=== PATIENT | female | born 1985 | race Caucasian/White ===

== ENCOUNTER 2019-10-28 17:01 | Emergency (ER) | payer BC, SELFPAY ==
[2019-10-28 17:32] VITALS: BP 116/75; PULSE 60; RESP 18; TEMP 36.9; O2SAT 99
--- NOTE | 2019-10-28 18:16 | ED.SKABFB ---
HPI - Skin/Abscess/Foreign Bdy General Chief complaint: Skin/Abscess/Foreign Body Stated complaint: rash Time Seen by Provider: 10/28/19 18:16 Source: patient and RN notes reviewed Mode of arrival: ambulatory Limitations: no limitations History of Present Illness HPI narrative: 34-year-old female presents with concern for rash to upper back, anterior chest, under her bra and around her breasts. Reports symptoms have been present for 2 weeks. She reports the rash itches sometimes and herman sometimes. Denies any new household products, personal care products, denies any history of food allergies, denies any new medications. Denies shortness of breath, problem swelling, problems breathing, swollen tongue, swollen lips. Reports Benadryl has no effect. MD complaint: rash Related Data Allergies Allergy/AdvReac Type Severity Reaction Status Date / Time No Known Allergies Allergy Verified 10/28/19 17:57 Review of Systems Review of Systems: Narrative: CONSTITUTIONAL: Denies malaise, chills, sweats, or fever. ENT: Denies rhinorrhea, congestion, sinus pain, otalgia or sore throat. CARDIOVASCULAR: Denies chest pain, palpitations, or edema. RESPIRATORY: Denies cough or dyspnea. GASTROINTESTINAL: Denies abdominal pain, nausea, vomiting, diarrhea SKIN: Reports 2-week history of itchy burning rash on her back, chest, under breasts, the armpits. MUSCULOSKELETAL: Denies myalgia. All systems reviewed & are unremarkable except as noted in HPI and below PMFSH Social History Social History Gender identity (if verbalized by the patient): Female Comments At time of signature, agree with nursing past medical, surgical, social and family history. There is no relevant family history pertinent to the presenting complaint Exam Narrative: Exam Narrative: GENERAL: Well-appearing, well-nourished, and in no acute distress. HEAD: Normocephalic EYES: PERRLA, conjunctivae clear ENT: Nares clear. Mucous membranes moist. Oropharynx without edema, erythema or lesions. NECK: Supple. No lymphadenopathy. CHEST: No respiratory distress. Clear to auscultation. No bony deformities, no asymmetry. Speaks in full sentences. HEART: Regular rate and rhythm. No murmur heard. SKIN: Warm, dry. [place] scaly patches, some annular noted to back, under bra line, rib cage, near axilla consistent with tinea NEURO: Alert and oriented x3. PSYCH: Normal mood and affect Course Course Emergency Course: Patient is aware of diagnosis, understands and agrees to treatment plan. Anticipatory guidance given. Patient agrees to follow-up as directed and is aware of reasons to seek care at the emergency department. Portions of this record may have been created with voice recognition software Vital Signs Vital signs: Vital Signs Temperature 98.4 F 10/28/19 17:32 Pulse Rate 60 10/28/19 17:32 Respiratory Rate 18 10/28/19 17:32 Blood Pressure 116/75 10/28/19 17:32 Pulse Oximetry 99 10/28/19 17:32 Temperature 98.4 F 10/28/19 17:32 Pulse Rate 60 10/28/19 17:32 Respiratory Rate 18 10/28/19 17:32 Blood Pressure 116/75 10/28/19 17:32 Pulse Oximetry 99 10/28/19 17:32 Reviewed. MDM - Skin/Abscess/Foreign Bdy MDM Narrative Medical decision making narrative: Does not appear at this time to be erythema multiforme, bullous, SJS, TEN; no evidence at this time to suggest RMSF, endocarditis or Lyme disease; patient looks well, nontoxic and is tolerating oral intake; no neurologic signs or symptoms; no headache, photophobia or neck pain; afebrile; appropriate for initial outpatient treatment; discussed the importance of follow-up, patient agrees; question, viral exanthema, contact dermatitis, allergic dermatitis, eczema, urticaria, tinea. No soft palate or uvula edema, no tongue, lip edema or other mucosal involvement, no respiratory compromise, no stridor, no wheezing, no wheezing, no history of syncope, no hypotension, no nausea, vomiting, or diarrhea. In
== END 2019-10-28 18:31 | disposition home or self-care (01) ==
PROVIDERS: Emergency Provider Nurse Practitioner; PCP Nurse Practitioner Family
DX: B35.9 Dermatophytosis, unspecified (principal)
CPT/HCPCS: 99213; G0463

== ENCOUNTER 2019-11-24 19:00 | Emergency (ER) | payer BC, SELFPAY ==
[2019-11-24 19:11] VITALS: BP 120/81; PULSE 79; RESP 16; TEMP 36.9; O2SAT 16
--- NOTE | 2019-11-24 19:19 | ED.GENADULT ---
HPI - General Adult General Chief complaint: Wound/Laceration Stated complaint: laceration to left thumb Time Seen by Provider: 11/24/19 19:19 Source: patient and RN notes reviewed Mode of arrival: ambulatory Limitations: no limitations History of Present Illness HPI narrative: 34-year-old female presents with complaints of laceration to 1st finger ([id number]-DIP area) on left hand, caused by a kitchen knife approximately 30 minutes prior to arrival [facility]. Applied pressure to control bleeding with some relief. Brielle says she was cutting a sweet potatoes and cut her finger. Denies focal weakness, altered sensation. Denies pain, numbness or tingling, or loss of mobility. RIGHT HAND is the dominant hand. No foreign body sensation. Tetanus up-to-date per Brielle. Brielle denies being , LMP 4 weeks ago. The patient reports she have not been diagnosed with COVID-19. The patient reports she is not waiting for the results of a COVID-19 lab test. The patient reports she do not have fever, chills, weakness, fatigue, myalgia, or facial swelling. The patient reports she do not have a new or worsening cough or shortness of breath. Denies chest pain. The patient reports she do not have any rhinorrhea, congestion, sore throat, nausea, vomiting, abdominal pain, and diarrhea. Tolerating po intake well. Denies recent traveling. Denies concerns for COVID-19 or exposures been home since [id number] order except for essential household needs, working (currently from home), and return home. At this time, patient is not suspected of having COVID-19. Some parts of this dictation were generated by voice recognition software and may contain typographical and/or grammatical inaccuracies Related Data Allergies Allergy/AdvReac Type Severity Reaction Status Date / Time No Known Allergies Allergy Verified 10/28/19 17:57 Review of Systems Review of Systems: Narrative: CONSTITUTIONAL: Denies fever, chills, sweats. EYES: Denies visual changes, redness, discharge. ENT: Denies rhinorrhea, congestion, sore throat, otalgia. CARDIOVASCULAR: Denies chest pain, palpitations, edema. RESPIRATORY: Denies dyspnea, wheezing, cough. GASTROINTESTINAL: Denies abdominal pain, nausea, vomiting, or diarrhea. GENITOURINARY: Denies dysuria, hematuria, abnormal discharge. SKIN: Denies rash or itching. Complains of laceration to 1st finger ([id number]-[id number]-[id number]-palm-DIP area) on left hand. MUSCULOSKELETAL: Denies acute back pain, joint pain, or myalgia. NEUROLOGIC: Denies numbness or focal weakness. PSYCHIATRIC: Denies anxiety or depression. All other systems reviewed & are unremarkable except as noted in HPI and below. [facility] Past Medical History Medical History (Updated 11/25/19 @ 00:00 by [facility]emon) Ganglion of right wrist Seizures Surgical History Surgical History (Updated 11/24/19 @ 19:57 by CRESCENCIO Steele) H/O right wrist surgery Family History Family History (Updated 11/24/19 @ 19:58 by CRESCENCIO Steele) Father Diabetes mellitus Mother Alive and well Social History Social History (Updated 11/24/19 @ 19:58 by CRESCENCIO Steele) Smoking status: Former smoker Tobacco type: cigarettes Second hand tobacco smoke exposure: Yes Smoking end date: 11/21/18 Alcohol intake: current Substance use: never Living arrangements: with family Occupation/Education: occupation Gender identity (if verbalized by the patient): Female Comments At time of signature, agree with nurse past medical, surgical, social, and family history. There is no relevant family history pertinent to the presenting complaint. Exam Narrative: Exam Narrative: GENERAL: This is a well-nourished, well-developed patient, in no apparent distress. HEAD: normocephalic, atraumatic. CARDIOVASCULAR: Regular rate and rhythm without murmurs, gallops, or rubs. RESPIRATORY: Clear to auscultation. Breath sounds equal bilateral
== END 2019-11-24 19:58 | disposition home or self-care (01) ==
PROVIDERS: Emergency Provider Nurse Practitioner Family; PCP Nurse Practitioner Family
DX: S61.311A Laceration without foreign body of left index finger with damage to nail, initial encounter (principal); W26.0XXA Contact with knife, initial encounter; Y93.G1 Activity, food preparation and clean up
CPT/HCPCS: 12001; 99213; G0463